=== PATIENT | male | born 1960 | race Caucasian/White ===

== ENCOUNTER 2018-07-14 05:30 | Day surgery (SDC) | payer OTHER ==
[~2018-07-14] VITALS: Ht 188 cm; Wt 119.7 kg
--- NOTE | ~2018-07-14 | O ---
[facility] [place] [address] OPERATIVE REPORT Name: KERON DIAZ Room #: 150-6 [facility] M..#: [id number] Admission: 07/14/18 Attend Phys: Bonifacio Doyle MD Discharge: Date of : 58 Report #: [id number] THIS REPORT FOR: //name// CC: Physician staff TRU Doyle DATE OF SERVICE: 07/14/2018 PREOPERATIVE DIAGNOSIS: Exposed left orbital implant. POSTOPERATIVE DIAGNOSIS: Exposed left orbital implant. PROCEDURE: Removal of exposed left orbital implant with placement of secondary silicone orbital implant, conjunctivoplasty, and temporary tarsorrhaphy. SURGEON: Bonfiacio Doyle M.D. CONTACT AGENT: None. ANESTHESIA: General. COMPLICATIONS: None. 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 The exposure was such that the implant needs to be removed and a secondary implant placed. Informed consent was obtained to include but not limited to the potential risk for loss of vision, bleeding, infection, failure to improve the problem, the potential need for further surgery or treatment. DESCRIPTION OF PROCEDURE: The patient was taken to the operating room where general anesthesia was administered. The left orbit was then anesthetized with Xylocaine with epinephrine mixed with Marcaine and Wydase. The patient was subsequently prepped and draped in the usual sterile fashion. The right eye was protected with a moistened sponge while a lid speculum was placed on the left side. The previous exposure was then elevated around its periphery and a 360 degree conjunctival incision made. Relaxing incisions were then made in the horizontal raphae. The dissection was then carried out on top of the implant dissecting all the tissue that was adhered to it all the way around 360 degrees to the posterior aspect. The implant was then delivered anteriorly. The posterior tenons insertion was then opened and an 18 mm sizing sphere fit in this space, but it was thought to be probably too large, especially considering that he had just expulsed his prior implant. A 16 mm silicone sphere was then [facility] [address] [place] [address] OPERATIVE REPORT Name: JOEKERON A Room #: 150-6 [facility]..#: [id number] Admission: 07/14/18 Attend Phys: Bonifacio Doyle MD Discharge: Date of : 58 Report #: [id number] placed behind posterior tenons as posterior tenons were subsequently closed with multiple interrupted 5-0 Vicryl sutures. Anterior tenons were also closed with interrupted 5-0 Vicryl sutures. A conjunctivoplasty was then developed laterally to cover the incision in an oblique fashion. Hemostasis was then re-achieved. The conjunctival incision was then closed with a running 6-0 Vicryl suture. A medium conformer fit well with the additional conjunctival space from the conjunctival rearrangement. A temporary tarsorrhaphy was then fashioned from a short section of IV tubing and a double armed 5-0 nylon suture passed. Erythromycin ointment was placed in the socket before the final closure undertaken. A Telfa pad was then placed on the eye followed by 2 eye pads, which were held in place with silk tape and Mastisol. The patient was subsequently transported to the recovery area having tolerated the procedures well with no anesthetic or operative complications being noted. By: [id number] Bonifacio Doyle MD /nt
[~2018-07-14 05:30] MED LIST: APAP650 PO; ASPIR 8181 MG PO; ATORVASTATIN CA40 MG PO; CELEXA20 MG PO; COUMADIN 5 MG TA5 M1 PO; FISH OIL 1,001000 M2 PO; FOLIC ACID1 MG PO; KLOR-CON 1010 MEQ PO; LEVOXYL50 MCG PO; METHOTREXATE 22.5 MG PO; MULTI VITAMIN1 EACH PO; NITROGLYCERIN0.4 MG SUBLING; PREDNISONE 5 MG5 M1 PO
[2018-07-14 09:52] LABS: INR 1.1
[2018-07-14 10:03] VITALS: BP 114/85
== END 2018-07-14 12:45 | disposition home or self-care (01) ==
LOC: TBA 05:30 → OR 05:30
PROVIDERS: Ophthalmology
DX: T85.398A Other mechanical complication of other ocular prosthetic devices, implants and grafts, initial encounter (principal); I11.0 Hypertensive heart disease with heart failure; I50.9 Heart failure, unspecified; I25.2 Old myocardial infarction; I25.10 Atherosclerotic heart disease of native coronary artery without angina pectoris; E03.9 Hypothyroidism, unspecified; E78.5 Hyperlipidemia, unspecified; M19.90 Unspecified osteoarthritis, unspecified site; F17.210 Nicotine dependence, cigarettes, uncomplicated; F32.9 Major depressive disorder, single episode, unspecified; Z79.899 Other long term (current) drug therapy; Z86.73 Personal history of transient ischemic attack (TIA), and cerebral infarction without residual deficits; Z95.5 Presence of coronary angioplasty implant and graft; Z88.2 Allergy status to sulfonamides; Z88.8 Allergy status to other drugs, medicaments and biological substances; Z79.82 Long term (current) use of aspirin; Y83.8 Other surgical procedures as the cause of abnormal reaction of the patient, or of later complication, without mention of misadventure at the time of the procedure
CPT/HCPCS: 50010; 50101; 50386; 50398; 51636; 51854; 55430; 56527; 56528; 64037; 70005